=== PATIENT | female | born 1965 | race Caucasian/White ===

== ENCOUNTER 2023-02-06 03:29 | Emergency (ER) | payer MEDICAID ==
[~2023-02-06] VITALS: Ht 160 cm; Wt 55.0 kg
[2023-02-06] MEDS ORDERED: ASPIRIN 81MG TABLET PO ONE (04:15)
[2023-02-06] MEDS: NITROGLYCERIN 0.4MG TABLET SL SL PRN ×2 (04:15→04:22)
[2023-02-06 04:39] LABS: BASOPHILS % 0.6 % (0.0-2.0); EOSINOPHILS % 1.8 % (0.0-5.0); HEMATOCRIT. 46.9 % (36.0-48.0); HEMOGLOBIN. 15.7 g/dL (12.0-16.0); MEAN CORPUSCULAR HEMOGLOBIN 31.9 pg (28.0-32.0); MEAN PLATELET VOLUME 7.9 fl (7.4-10.4); MONOCYTES % 8.5 % (2.0-8.0); NEUTROPHILS % 62.1 % (40.0-76.0); PLATELET 267 x1000/uL (130-400); RED BLOOD CELL COUNT 4.93 mill/uL (4.2-5.4); RED CELL DISTRIBUTION WIDTH 13.6 % (11.6-14.6)
[2023-02-06 04:46] LABS: CHLORIDE 102 mEq/L (98-107)
[2023-02-06] MEDS ORDERED: ACETAMINOPHEN 325MG TABLET PO STA (15:45)
[2023-02-07] MEDS ORDERED: ACETAMINOPHEN 325MG TABLET PO ONE (05:30)
[2023-02-07] MEDS: NITROGLYCERIN 0.4MG TABLET SL SL PRN (05:40)
[2023-02-08 22:51] LABS: CLARITY URINE CLEAR (CLEAR); COLOR URINE YELLOW (YELLOW); KETONES URINE TRACE (NEGATIVE); LEUKOCYTE ESTERASE URINE TRACE (NEGATIVE); NITRITE URINE NEGATIVE (NEGATIVE); OCCULT BLOOD URINE TRACE (NEGATIVE); PH URINE 6.5 (4.5-8.0); PROTEIN URINE TRACE (NEGATIVE); SPECIFIC GRAVITY URINE 1.026 (1.005-1.030)
[2023-02-08 23:11] LABS: *AMPHETAMINES SCREEN URINE PRESUMTIVE POSITIVE (NEGATIVE); *BARBITURATES SCREEN URINE NEGATIVE (NEGATIVE); *BENZODIAZEPINES SCREEN URINE NEGATIVE (NEGATIVE); *COCAINE SCREEN URINE NEGATIVE (NEGATIVE); CANNABINOID URINE SCREEN PRESUMTIVE POSITIVE (NEGATIVE); METHADONE URINE SCREEN NEGATIVE (NEGATIVE); OPIATES URINE SCREEN NEGATIVE (NEGATIVE); PHENCYCLIDINE URINE SCREEN NEGATIVE (NEGATIVE)
[2023-02-08 23:39] LABS: ETHANOL BLOOD < 10 mg/dL
[2023-02-09] MEDS: SERTRALINE HCL 25MG TABLET PO SCH (11:57)
[2023-02-10] MEDS: SERTRALINE HCL 25MG TABLET PO SCH (12:03)
[2023-02-10 12:30] VITALS: BP 116/74
== END 2023-02-10 12:30 | disposition home or self-care (01) ==
LOC: ER 03:29
DX: F32.9 Major depressive disorder, single episode, unspecified (principal); R45.851 Suicidal ideations; J45.909 Unspecified asthma, uncomplicated; F41.9 Anxiety disorder, unspecified; Z20.822 Contact with and (suspected) exposure to COVID-19; Z75.1 Person awaiting admission to adequate facility elsewhere; Z88.0 Allergy status to penicillin
CPT/HCPCS: 36415; 71045; 80053; 80305; 80307; 80320; 80329; 81001; 84484; 85025; 85379; 87426; 93005; 99285; C9803; Z7610; G0480